=== PATIENT | female | born 2000 | race Caucasian/White ===

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

== ENCOUNTER 2021-06-15 16:15 | Emergency (ER) | payer OTHER, MEDICAID, SELFPAY ==
[2021-06-15 16:36] VITALS: BP 116/71; PULSE 96; RESP 16; TEMP 36.9; O2SAT 100; BMI 23.1
== END 2021-06-15 18:49 | disposition left against medical advice (07) ==
PROVIDERS: Emergency Provider Emergency Medicine
CPT/HCPCS: 99281